=== PATIENT | male | born 1975 | race Caucasian/White ===

== ENCOUNTER 2020-04-19 12:38 | Emergency (ER) | payer OTHER ==
[~2020-04-19] VITALS: Ht 177.8 cm; Wt 108.6 kg
--- NOTE | 2020-04-19 13:44 | NUR ---
NO ANSWER FROM LOBBY TO ROOM. LAB STATES THEY'VE CALLED 3 TIMES. PATIENT ELOPED
[2020-04-19 13:53] LABS: MICROSCOPIC NOT IND
[2020-04-19 15:05] LABS: BASOPHILS % (AUTO) 1 % (0-1); EOSINOPHILS % (AUTO) 2 % (1-7); LYMPHOCYTES % (AUTO) 26 % (22-44); MD NO; MEAN CORPUSCULAR HEMOGLOBIN 30.5 pg (27.5-34.5); MEAN CORPUSCULAR HGB CONC 33.7 g/dL (33.2-36.2); MEAN PLATELET VOLUME 8.4 fL (7.4-10.4); MONOCYTES % (AUTO) 8 % (2-9); NEUTROPHILS % (AUTO) 64 % (42-75); PLATELET COUNT 227 x10^3/uL (130-400); RED BLOOD COUNT 5.49 x10^6/uL (4.38-5.82); RED CELL DISTRIBUTION WIDTH 12.8 % (9.4-14.8)
--- NOTE | 2020-04-19 15:30 | NUR ---
PT UPDATED TO POC (RAD/RESULTS/RECHECK/DISPO) AND DEMONSTRATES UNDERSTANDING. PT TO XRAY AT THIS TIME.
[2020-04-19 15:32] LABS: ALANINE AMINOTRANSFERASE 221 U/L (12-78); ALKALINE PHOSPHATASE 86 U/L (45-117); ANION GAP 5 mmol/L (5-15); BILIRUBIN,TOTAL 0.7 mg/dL (0.2-1.0); CHLORIDE 105 mmol/L (98-107); CREATININE 1.05 mg/dL (0.7-1.3); TOTAL PROTEIN 7.9 g/dL (6.4-8.2)
[2020-04-19] MEDS ORDERED: KETOROLAC 30 MG/1 ML ONE (15:57)
[2020-04-19] MEDS ORDERED: KETOROLAC 30 MG/1 ML IM ONE (16:00)
[2020-04-19 16:06] VITALS: BP 152/89
--- NOTE | 2020-04-19 16:09 | NUR ---
PT MEDICATED PER EMAR FOR PAIN. POC IS DC. PT OFF MONITORING AND UP TO DRESS SELF. AWAITING DC INSTRUCTIONS.
--- NOTE | 2020-04-19 16:39 | NUR ---
DC EDUCATION PROVIDED, PT DEMONSTRATES UNDERSTANDING. PT AMBULATED STEADILY TO DC WITH RN
== END 2020-04-19 16:40 | disposition home or self-care (01) ==
LOC: ED 13:45
DX: M54.6 Pain in thoracic spine (principal); R10.9 Unspecified abdominal pain; R94.5 Abnormal results of liver function studies; R06.02 Shortness of breath
CPT/HCPCS: 36415; 72072; 80053; 81003; 83690; 85025; 93005; 96372; 99285; J1885